=== PATIENT | male | born 1980 | race Caucasian/White ===

== ENCOUNTER 2018-12-12 21:17 | Emergency (ER) | payer OTHER ==
[~2018-12-12] VITALS: Ht 160 cm; Wt 74.1 kg
[2018-12-12] MEDS ORDERED: IBUP-2070 PO (21:31)
[2018-12-12] MEDS ORDERED: LORazepam 1 MG TABLET PO ONE (23:00)
[2018-12-12 23:05] VITALS: BP 136/93
== END 2018-12-12 23:12 | disposition home or self-care (01) ==
LOC: EMS 21:19
DX: F41.9 Anxiety disorder, unspecified (principal); F20.9 Schizophrenia, unspecified
CPT/HCPCS: 93005

== ENCOUNTER 2018-12-14 15:49 | Inpatient (IN) | payer MEDICAID, OTHER ==
[~2018-12-14] VITALS: Ht 165.1 cm; Wt 71.2 kg
[~2018-12-14 15:49] MED LIST: BENZ1TAB10 PO; DIVA-78 PO; DSS100 PO; IBUP-2070 PO; OMEG-135 PO; OMEP20 PO; QUET100T PO; QUET200T PO; VITAD1000 PO
[2018-12-14] MEDS ORDERED: HALOPERIDOL 5 MG TABLET PO ONE (17:30)
[2018-12-14] MEDS ORDERED: LORazepam 2 MG TABLET PO ONE (17:30)
[2018-12-14 17:36] LABS: ANION GAP 9 mmol/L (8-16); CALCIUM, TOTAL 10.1 mg/dL (8.8-10.5); CARBON DIOXIDE 28 mmol/L (22-29); CHLORIDE 103 mmol/L (98-107); CREATININE 0.79 mg/dL (0.60-1.30); GLOMERULAR FILTR. RATE CALC > 60 mL/min (>60); GLUCOSE,RANDOM 120 mg/dL (70-110); SODIUM SERUM 140 mmol/L (136-145); UREA NITROGEN, BLOOD 11 mg/dL (7-18)
[2018-12-14 17:41] LABS: ALANINE AMINOTRANSFERASE 25 U/L (12-78); ALBUMIN 4.3 g/dL (3.4-5.0); ALKALINE PHOSPHATASE 77 U/L (46-116); ASPARTATE AMINOTRANSFERASE 18 U/L (15-37); BILIRUBIN,TOTAL 0.8 mg/dL (0.1-1.0); TOTAL PROTEIN, SERUM 8.4 g/dL (6.4-8.2)
[2018-12-14 17:47] LABS: BASOPHILS % (AUTO) 0.5 % (0.0-2.0); EOSINOPHILS % (AUTO) 0.6 % (1.0-6.0); HEMATOCRIT 45.3 % (41-53); HEMOGLOBIN 15.3 g/dL (13.5-17.5); LYMPHOCYTES # (AUTO) 1.5 K/uL (1.0-4.8); LYMPHOCYTES % (AUTO) 18.1 % (22.0-44.0); MEAN CORPUSCULAR HEMOGLOBIN 26.4 pg (26.0-34.0); MEAN CORPUSCULAR HGB CONC 33.7 G/dL (31.0-37.0); MEAN CORPUSCULAR VOLUME 78 fL (80-100); MONOCYTES # (AUTO) 0.4 K/uL (0.1-1.0); MONOCYTES % (AUTO) 5.2 % (2.0-9.0); NEUTROPHILS # (AUTO) 6.4 K/uL (1.8-7.7); NEUTROPHILS % (AUTO) 75.6 % (40.0-70.0); PLATELET COUNT (AUTO) 293 K/uL (150-450); RED BLOOD CELL COUNT(AUTO) 5.78 MIL/uL (4.50-5.90); RED CELL DISTRIBUTION WIDTH 14.7 % (11.5-14.5)
[2018-12-14] MEDS ORDERED: HALOPERIDOL 5 MG TABLET PO PRN (18:15)
[2018-12-14] MEDS ORDERED: ZOLPIDEM TARTRATE 10 MG TABLET PO PRN (18:15)
[2018-12-14] MEDS ORDERED: LORazepam 2 MG TABLET PO PRN (18:15)
[2018-12-14 20:36] VITALS: BP 127/80
[2018-12-15 09:33] VITALS: BP 104/74
[2018-12-15] MEDS: IBUPROFEN 600 MG TABLET PO PRN ×2 (10:10→18:29)
[2018-12-15 16:55] VITALS: BP 121/76
[2018-12-16 07:06] LABS: HEMOGLOBIN A1C 5.4 % (4.5-6.2)
[2018-12-16 07:09] LABS: CHOL/HDL RATIO 6.5 (4.2-7.3)
[2018-12-16 08:22] VITALS: BP 127/72
[2018-12-16] MEDS ORDERED: RisperiDONE MICROSPHERES 50 MG/2 ML SYRINGE IM SCH (10:00)
[2018-12-16] MEDS: BENZTROPINE MESYLATE 1 MG TABLET PO SCH ×2 (10:25→17:13)
[2018-12-16] MEDS: QUEtiapine FUMARATE 100 MG TABLET PO SCH (10:25)
[2018-12-16] MEDS: DIVALPROEX SODIUM 500 MG ER TABLET PO SCH (17:20)
[2018-12-16 19:58] VITALS: BP 117/64
[2018-12-16] MEDS: QUEtiapine FUMARATE 200 MG TABLET PO SCH (20:46)
[2018-12-17 08:22] VITALS: BP 101/66
[2018-12-17] MEDS: DIVALPROEX SODIUM 500 MG ER TABLET PO SCH ×2 (09:32→16:38)
[2018-12-17] MEDS: BENZTROPINE MESYLATE 1 MG TABLET PO SCH ×2 (09:32→16:38)
[2018-12-17] MEDS: QUEtiapine FUMARATE 100 MG TABLET PO SCH (09:32)
[2018-12-17 16:30] VITALS: BP 105/71
[2018-12-17] MEDS: QUEtiapine FUMARATE 200 MG TABLET PO SCH (20:40)
[2018-12-18 08:05] VITALS: BP 122/68
[2018-12-18] MEDS: QUEtiapine FUMARATE 100 MG TABLET PO SCH (10:08)
[2018-12-18] MEDS: DIVALPROEX SODIUM 500 MG ER TABLET PO SCH ×2 (10:08→16:36)
[2018-12-18] MEDS: BENZTROPINE MESYLATE 1 MG TABLET PO SCH ×2 (10:08→16:36)
[2018-12-18 16:30] VITALS: BP 116/70
[2018-12-18] MEDS: QUEtiapine FUMARATE 200 MG TABLET PO SCH (21:00)
[2018-12-19 08:05] VITALS: BP 98/64
[2018-12-19] MEDS: BENZTROPINE MESYLATE 1 MG TABLET PO SCH ×2 (08:31→16:31)
[2018-12-19] MEDS: QUEtiapine FUMARATE 100 MG TABLET PO SCH (08:31)
[2018-12-19] MEDS: DIVALPROEX SODIUM 500 MG ER TABLET PO SCH ×2 (08:31→16:31)
[2018-12-19 17:00] VITALS: BP 125/82
[2018-12-19] MEDS: QUEtiapine FUMARATE 200 MG TABLET PO SCH (20:39)
[2018-12-20 08:05] VITALS: BP 94/55
[2018-12-20] MEDS: DIVALPROEX SODIUM 500 MG ER TABLET PO SCH (09:23)
[2018-12-20] MEDS: QUEtiapine FUMARATE 100 MG TABLET PO SCH (09:23)
[2018-12-20] MEDS: BENZTROPINE MESYLATE 1 MG TABLET PO SCH (09:23)
[2018-12-20] MEDS ORDERED: DIVA500T52 PO (09:38)
[2018-12-20] MEDS ORDERED: QUET100T PO (09:38)
[2018-12-20] MEDS ORDERED: BENZ1TAB10 PO (09:38)
[2018-12-20] MEDS ORDERED: QUET200T PO (09:39)
[2018-12-20] MEDS ORDERED: RISPC50 IM (09:39)
== END 2018-12-20 11:30 | disposition home or self-care (01) | DRG 750 ==
LOC: EMS 15:50 → 3EI 18:50
PROVIDERS: ADMIT Psychiatry & Neurology Psychiatry; ATTEND Psychiatry & Neurology Psychiatry
DX: F25.9 Schizoaffective disorder, unspecified (principal); Z91.19 Patient's noncompliance with other medical treatment and regimen; F41.9 Anxiety disorder, unspecified; R73.9 Hyperglycemia, unspecified; Z79.899 Other long term (current) drug therapy
CPT/HCPCS: 83036; G0480; J2794

== ENCOUNTER 2019-04-04 14:18 | Emergency (ER) | payer MEDICAID, OTHER ==
[~2019-04-04] VITALS: Ht 170.2 cm; Wt 80.9 kg
[~2019-04-04 14:18] MED LIST changes: +DIVA500T52 PO; +RISPC50 IM
[2019-04-04] MEDS ORDERED: LORazepam 2 MG/ML VIAL IM ONE (15:45)
[2019-04-04 16:31] VITALS: BP 111/81
== END 2019-04-04 16:44 | disposition home or self-care (01) ==
LOC: EMS 14:21
DX: F41.9 Anxiety disorder, unspecified (principal); F20.9 Schizophrenia, unspecified; F84.0 Autistic disorder; Z79.899 Other long term (current) drug therapy
CPT/HCPCS: 96372; 99284; J2060

== ENCOUNTER 2019-04-08 12:29 | Emergency (ER) | payer OTHER ==
[~2019-04-08] VITALS: Ht 170.2 cm; Wt 76.4 kg
[~2019-04-08 12:29] MED LIST changes: -DIVA500T52 PO
[2019-04-08 15:01] VITALS: BP 124/69
== END 2019-04-08 15:04 | disposition home or self-care (01) ==
LOC: EMS 12:31
DX: F41.9 Anxiety disorder, unspecified (principal); F84.0 Autistic disorder; F20.9 Schizophrenia, unspecified

== ENCOUNTER 2019-06-22 14:19 | Emergency (ER) | payer OTHER ==
[~2019-06-22] VITALS: Ht 170.2 cm; Wt 75.0 kg
[2019-06-22] MEDS ORDERED: PENICILLIN V POTASSIUM 500 MG TABLET PO ONE (15:15)
[2019-06-22 15:37] VITALS: BP 119/89
== END 2019-06-22 16:08 | disposition home or self-care (01) ==
LOC: EMS 14:22
DX: K02.9 Dental caries, unspecified (principal); F20.9 Schizophrenia, unspecified; Z79.899 Other long term (current) drug therapy

== ENCOUNTER 2019-07-05 19:24 | Emergency (ER) | payer OTHER ==
[~2019-07-05] VITALS: Ht 165.1 cm; Wt 85.0 kg
[~2019-07-05 19:24] MED LIST changes: +CHOL100018 PO; -VITAD1000 PO
[2019-07-05] MEDS ORDERED: LORA0.5T2 PO (19:34)
[2019-07-05 19:45] VITALS: BP 124/82
[2019-07-05] MEDS ORDERED: LORazepam 1 MG TABLET PO ONE (20:15)
== END 2019-07-05 20:34 | disposition home or self-care (01) ==
LOC: EMS 19:27
DX: F41.9 Anxiety disorder, unspecified (principal); F25.9 Schizoaffective disorder, unspecified

== ENCOUNTER 2019-07-10 12:42 | Emergency (ER) | payer OTHER ==
[~2019-07-10] VITALS: Ht 162.6 cm; Wt 72.0 kg
[~2019-07-10 12:42] MED LIST changes: -BENZ1TAB10 PO; -CHOL100018 PO; -DIVA-78 PO; -DSS100 PO; -IBUP-2070 PO; +LORA0.5T2 PO; -OMEG-135 PO; -OMEP20 PO; -QUET100T PO; -QUET200T PO
[2019-07-10 13:09] VITALS: BP 121/79
[2019-07-10] MEDS ORDERED: IBUPROFEN 600 MG TABLET PO ONE (13:30)
== END 2019-07-10 14:02 | disposition home or self-care (01) ==
LOC: EMS 12:44
DX: M79.672 Pain in left foot (principal); R03.0 Elevated blood-pressure reading, without diagnosis of hypertension; F20.9 Schizophrenia, unspecified; Z79.899 Other long term (current) drug therapy

== ENCOUNTER 2019-07-17 13:34 | Emergency (ER) | payer OTHER ==
[~2019-07-17] VITALS: Ht 167.6 cm; Wt 85.5 kg
[~2019-07-17 13:34] MED LIST changes: -RISPC50 IM
[2019-07-17 17:10] VITALS: BP 114/84
== END 2019-07-17 17:22 | disposition home or self-care (01) ==
LOC: EMS 13:35
DX: F41.9 Anxiety disorder, unspecified (principal); F20.9 Schizophrenia, unspecified

== ENCOUNTER 2019-07-18 16:12 | Emergency (ER) | payer OTHER ==
[~2019-07-18] VITALS: Ht 160 cm; Wt 68.0 kg
[2019-07-18] MEDS ORDERED: BENZOCAINE/MENTHOL LOZENGE PO ONE (17:00)
[2019-07-18] MEDS ORDERED: BENZONATATE 100 MG CAPSULE PO ONE (17:00)
[2019-07-18 18:05] VITALS: BP 125/87
== END 2019-07-18 18:05 | disposition home or self-care (01) ==
LOC: EMS 16:14
DX: J06.9 Acute upper respiratory infection, unspecified (principal); J34.89 Other specified disorders of nose and nasal sinuses; F20.9 Schizophrenia, unspecified

== ENCOUNTER 2019-07-19 14:32 | Emergency (ER) | payer OTHER ==
[~2019-07-19] VITALS: Ht 167.6 cm; Wt 77.3 kg
[~2019-07-19 14:32] MED LIST changes: +LORA-999 PO; -LORA0.5T2 PO
[2019-07-19] MEDS ORDERED: LORazepam 1 MG TABLET PO ONE (15:00)
[2019-07-19 15:25] VITALS: BP 116/84
== END 2019-07-19 15:35 | disposition home or self-care (01) ==
LOC: EMS 14:33
DX: F41.9 Anxiety disorder, unspecified (principal); R05 Cough; F20.9 Schizophrenia, unspecified

== ENCOUNTER 2019-07-20 15:12 | Emergency (ER) | payer OTHER ==
[~2019-07-20] VITALS: Ht 167.6 cm; Wt 74.0 kg
[2019-07-20 15:14] VITALS: BP 142/96
[2019-07-20] MEDS ORDERED: HydrOXYzine PAMOATE 50 MG CAPSULE PO ONE (15:30)
[2019-07-20] MEDS ORDERED: ACETAMINOPHEN 500 MG TABLET PO ONE (15:30)
== END 2019-07-20 16:35 | disposition home or self-care (01) ==
LOC: EMS 15:14
DX: F41.9 Anxiety disorder, unspecified (principal); M25.561 Pain in right knee; F20.9 Schizophrenia, unspecified

== ENCOUNTER 2020-01-29 13:01 | Emergency (ER) | payer OTHER ==
[~2020-01-29] VITALS: Ht 165.1 cm; Wt 72.7 kg
[2020-01-29] MEDS ORDERED: HydrOXYzine PAMOATE 25 MG CAPSULE PO ONE (14:45)
[2020-01-29 15:30] VITALS: BP 112/50
== END 2020-01-29 16:07 | disposition home or self-care (01) ==
LOC: EMS 13:05
DX: F41.9 Anxiety disorder, unspecified (principal); R05 Cough; F20.9 Schizophrenia, unspecified; Z20.828 Contact with and (suspected) exposure to other viral communicable diseases
CPT/HCPCS: 87635

== ENCOUNTER 2020-01-31 15:16 | Emergency (ER) | payer OTHER ==
[~2020-01-31] VITALS: Ht 170.2 cm; Wt 72.7 kg
[2020-01-31 15:18] VITALS: BP 127/78
[2020-01-31] MEDS ORDERED: LOPERAMIDE HCL 2 MG CAPSULE PO ONE (15:30)
[2020-01-31] MEDS ORDERED: ACETAMINOPHEN 500 MG TABLET PO ONE (15:30)
== END 2020-01-31 16:05 | disposition left against medical advice (07) ==
LOC: EMS 15:17
DX: R19.7 Diarrhea, unspecified (principal); Z53.21 Procedure and treatment not carried out due to patient leaving prior to being seen by health care provider